=== PATIENT | male | born 1960 | race Caucasian/White ===

== ENCOUNTER 2021-05-23 12:30 | Emergency (ER) | payer BC, OTHER ==
[2021-05-23] MEDS ORDERED: Diltiazem 50 MG/10 ML SDV IVPUSH ONE ×2 (12:46→13:17)
[2021-05-23] MEDS ORDERED: Propofol 200 MG/20 ML SDV ONE (17:35)
[2021-05-23] MEDS: Propofol 200 MG/20 ML SDV IVPUSH ONE ×2 (17:50→18:09)
== END 2021-05-23 18:58 | disposition home or self-care (01) ==
LOC: JD.ED 12:30
DX: R07.2 Precordial pain (principal); I48.91 Unspecified atrial fibrillation; E78.00 Pure hypercholesterolemia, unspecified; I10 Essential (primary) hypertension; E03.9 Hypothyroidism, unspecified; Z79.82 Long term (current) use of aspirin; Z79.899 Other long term (current) drug therapy; Z87.891 Personal history of nicotine dependence
CPT/HCPCS: 36415; 71045; 80053; 84443; 84484; 85007; 85027; 85379; 85610; 85730; 92960; 93005; 96374; 99152; 99285; J2704; J3490; 93010; 99284

== ENCOUNTER 2021-07-02 13:21 | Emergency (ER) | payer BC ==
[2021-07-02] MEDS ORDERED: Aspirin 81 MG Tab.Chew PO ONE (13:58)
[2021-07-02] MEDS ORDERED: Sodium Chloride 0.9% 10 ML Syringe FLUSH PRN (13:58)
[2021-07-02] MEDS ORDERED: Sodium Chloride 0.9% 1,000 ML IV SCH (14:00)
[2021-07-02 14:18] LABS: ESTIMATED GFR > 60 mL/min (>60)
[2021-07-02] MEDS ORDERED: Propofol 200 MG/20 ML SDV IVPUSH ONE (15:13)
== END 2021-07-02 17:10 | disposition home or self-care (01) ==
LOC: JD.ED 13:21
DX: I48.91 Unspecified atrial fibrillation (principal); E78.00 Pure hypercholesterolemia, unspecified; I10 Essential (primary) hypertension; E03.9 Hypothyroidism, unspecified; Z79.84 Long term (current) use of oral hypoglycemic drugs; Z79.82 Long term (current) use of aspirin; Z79.899 Other long term (current) drug therapy; Z86.16 Personal history of COVID-19
CPT/HCPCS: 36415; 71045; 71045-26; 80053; 84484; 85025; 92960; 93005; 99285-25; A9270-GY; J2704; J3490; J7030

== ENCOUNTER 2021-11-22 12:37 | Emergency (ER) | payer BC ==
[2021-11-22] MEDS ORDERED: Metoprolol Tartrate 5 MG/5 ML SDV IVPUSH ONE (13:16)
[2021-11-22] MEDS ORDERED: Magnesium Sulfate (4.06 MEQ/ML) 5 GM/10 ML SDV IV ONE (13:24)
[2021-11-22] MEDS ORDERED: Lactated Ringers 500 ML IV ONE (13:41)
[2021-11-22] MEDS ORDERED: Propofol 200 MG/20 ML SDV IVPUSH ONE (14:09)
[2021-11-22] MEDS ORDERED: Magnesium Sulfate/Water 2 GM in Premix Bag 1 BAG IV ONE (14:10)
[2021-11-22] MEDS ORDERED: Potassium Chloride 20 MEQ Tab.ER PO ONE (14:49)
== END 2021-11-22 16:35 | disposition home or self-care (01) ==
LOC: JD.ED 12:37
DX: I48.91 Unspecified atrial fibrillation (principal); I10 Essential (primary) hypertension; E78.00 Pure hypercholesterolemia, unspecified; E03.9 Hypothyroidism, unspecified; Z79.82 Long term (current) use of aspirin; Z79.84 Long term (current) use of oral hypoglycemic drugs; Z79.899 Other long term (current) drug therapy
CPT/HCPCS: 36415; 71045; 71045-26; 80053; 83735; 85025; 92960; 96365; 96366; 96375; 99285-25